=== PATIENT | male | born 1995 | race Caucasian/White ===

== ENCOUNTER 2022-03-24 20:20 | Emergency (ER) | payer SELFPAY ==
[2022-03-24 20:21] VITALS: BP 122/80; PULSE 59; RESP 16; TEMP 37.1; O2SAT 99; BMI 25.0
--- NOTE | 2022-03-24 22:05 | EX.ED.VIS.EY ---
HPI History of Present Illness Chief Complaint: Eye Problem Informant: patient Narrative Narrative: Patient presents with swelling mostly around his left upper and lower eyelids. He has been out camping but has no specific known exposure. He had some swelling more diffusely on his face and forehead yesterday but it seemed to get better in the left eye did not. No drainage. No pain. No fevers or chills. When he pulls his lid open his vision is normal. No matting. Nothing makes this better or worse but nothing has been tried. PFSH PFSH Medical History no medical history Home Medications NK 03/24/22 [History Last Taken Unknown] Allergy/AdvReac Type Severity Reaction Status Date / Time No Known Allergies Allergy Verified 03/24/22 20:25 Social History Smoking Status: Current every day smoker tobacco type: cigarettes ROS ROS ED Constitutional Constitutional ED: Denies chills or fever(s) Eyes Eyes: Reports other Details: See history of present illness. Patient states his vision is normal but he just has swelling of his lid. ; Denies blurry vision, change in vision or diplopia ENT ENT ED: Reports rhinorrhea; Denies sore throat Cardiovascular Cardiovascular: Denies chest pain Respiratory/Chest Respiratory/Chest: Denies cough or dyspnea Gastrointestinal Gastrointestinal: Denies nausea or vomiting Musculoskeletal Musculoskeletal: Denies arthralgias or myalgias Integumentary Denies rash Hematologic/Lymphatic Hematologic/Lymphatic: Denies lymphadenopathy Allergic/Immunologic Allergic/Immunologic ED: Denies urticaria EXAM Physical Exam Const Vital Signs: 03/24/22 20:21 Temperature 98.8 F Temperature Source Temporal Pulse Rate 59 L Respiratory Rate 16 Blood Pressure 122/80 H Blood Pressure Mean 94 Pulse Ox 99 Oxygen Delivery Method Room Air Positive well nourished and well developed General Appearance ED: well developed and NAD HEENT HEENT Narrative: Patient has a little bit of swelling on his forehead. Mostly in upper and lower lids. It looks like allergic type edema. Its not red. There is no drainage in the eye. When the lids are open the eye itself looks normal. There is no inflammation. No drainage. Pupils normal. He states vision is normal. No pain with motion of the eye or limitation. And no sinus tenderness. There is also a moderate amount of sunburn on the patient's face diffusely. Neck no lymphadenopathy Resp normal respiratory effort Cardio regular rate and regular rhythm Extremity Extremity Narrative: Sunburn No other abnormality Neuro Sensorium / Orientation: alert Skin Skin Narrative: No vesicles. Negative Pinto sign. Rashes: No rashes noted MDM MDM MDM Narrative Medical decision making narrative: This does not look to be infectious. Its not red and there is no drainage or discharge or matting. This appears to be most likely allergic. He will use Claritin or Zyrtec. I will give him a single dose of Decadron to see if this gets better. If he develops any crusting drainage pain or visual changes he should be rechecked. Discharge Plan Triage Chief Complaint: Eye Problem ED Provider: Ramesh Pang Dx/Rx/DC Orders Clinical Impression: Allergic blepharitis Instructions: ED Conjunctivitis, Allergic Prescriptions: No Action NK Referrals: Matt Bartlett MD [STAFF PHYSICIAN] - 1-2 Days if not improving Disposition Disposition: Home, Self Care
[2022-03-24] MEDS: dexAMETHasone 4 MG Tablet 6 MG PO (22:14)
== END 2022-03-24 22:19 | disposition home or self-care (01) ==
LOC: ED 22:11
PROVIDERS: Emergency Provider Emergency Medicine; Visit Provider Emergency Medicine
DX: H01.004 Unspecified blepharitis left upper eyelid (principal); H01.005 Unspecified blepharitis left lower eyelid; F17.210 Nicotine dependence, cigarettes, uncomplicated
CPT/HCPCS: 99283